=== PATIENT | male | born 1965 | race Caucasian/White ===

== ENCOUNTER 2023-05-28 09:45 | Emergency (ER) | payer OTHER | END 2023-05-28 11:10 | disposition home or self-care (01) | LOC: MADERS 09:45 | DX: S62.336A Displaced fracture of neck of fifth metacarpal bone, right hand, initial encounter for closed fracture (principal); K21.9 Gastro-esophageal reflux disease without esophagitis; I10 Essential (primary) hypertension; F17.290 Nicotine dependence, other tobacco product, uncomplicated; Z79.899 Other long term (current) drug therapy; Y04.0XXA Assault by unarmed brawl or fight, initial encounter | CPT/HCPCS: 29125 ==